=== PATIENT | female | born 1975 | race Caucasian/White ===

== ENCOUNTER → 2020-11-17 | Outpatient (CLI) | payer OTHER, SELFPAY ==
[2020-11-20 15:04] LABS: HPV Reflexed? NOT INDICATED
== END | disposition home or self-care (01) ==
LOC: LABSPEC 16:53
PROVIDERS: Visit Provider Obstetrics & Gynecology
DX: Z12.4 Encounter for screening for malignant neoplasm of cervix (principal)
CPT/HCPCS: 88175; G0145